=== PATIENT | female | born 1965 | race Caucasian/White ===

== ENCOUNTER 2021-12-20 22:16 | Emergency (ER) | payer MEDICARE, MEDICAID ==
[~2021-12-20] VITALS: Ht 162.6 cm; Wt 77.7 kg
--- NOTE | 2021-12-21 00:50 | NUR ---
ostomy site erythematous, irritated, and tender; pt states her ostomy bag has been changed over five times over the past several hours as the applicance would not stay on. Ostomy bright red with soft, brown stool noted at stoma; site gently cleaned with new applicance installed. pt gaurav procedure well; daughter at bs.
--- NOTE | 2021-12-21 01:07 | NUR ---
pt d/c to home with new applicance in stable and improved condition.
[2021-12-21 01:08] VITALS: BP 129/71
== END 2021-12-21 01:12 | disposition home or self-care (01) ==
LOC: ER 22:19
DX: K91.89 Other postprocedural complications and disorders of digestive system (principal); Z85.038 Personal history of other malignant neoplasm of large intestine
CPT/HCPCS: 99281